=== PATIENT | male | born 1950 | race African-American/Black ===

== ENCOUNTER 2022-01-23 14:55 | Emergency (ER) | payer OTHER ==
--- NOTE | 2022-01-23 15:35 | Emergency Department Report ---
ED CPR HPI - General Stated Complaint: CARDIAC ARREST Time Seen by Provider: 01/23/22 15:30 - History of Present Illness Initial Comments: 71-year-old male brought in by EMS with CPR in progress for the last 35 minutes. EMS got a call 10 minutes before arrival to patient home for witnessed collapse. According the patient family members patient was found face down. Patient is on blood thinner Coumadin. Patient was given 3 rounds of epi with no response. Patient initially was found to be in V. tach and was cardioverted time with no response. According to EMS patient has a history of unspecified abdominal cancer and had colostomy bag. History is very limited concerning the patient is unresponsive and intubated. - Related Data Allergies Allergy/AdvReac Type Severity Reaction Status Date / Time No Known Allergies Allergy Verified 01/23/22 15:05 ED Review of Systems ROS: Stated complaint: CARDIAC ARREST Other details as noted in HPI Comment: Unobtainable due to pts medical conditions (Intubated and unresponsive with CPR in progress) ED Physical Exam - General Limitations: Other (Intubated and unresponsive with CPR in progress) - Eye Eye exam: Present: other (Pupils fully dilated and unresponsive) ED Course - Reevaluation(s) Reevaluation #1: 01/23/22 15:36 Patient received from EMS with CPR in progress for the last 35 minutes. About 45 minutes from downtime. Patient has been given 3 rounds of epi and was given 4 rounds of epi on presentation. CPR continued in the emergency room for the last 35 minutes with intermittent appreciation of spontaneous heart rate. Patient started on IV fluids. And a routine order placed including CBC, CMP, for any electrolytes or infectious process. Chest x-ray order for any cardiopulmonary findings. At 15:25 PM FAST US initiated and found patient heart to be beating even though peripheral pulse not appreciated. All resuscitation terminated and patient decleared at 15:41 PM. 01/24/22 11:51 ED Medical Decision Making - Medical Decision Making Patient received from EMS with CPR in progress for the last 35 minutes. About 45 minutes from downtime. Patient has been given 3 rounds of epi and was given 4 rounds of epi on presentation. CPR continued in the emergency room for the last 35 minutes with intermittent appreciation of spontaneous heart rate. Patient started on IV fluids. And a routine order placed including CBC, CMP, for any electrolytes or infectious process. Chest x-ray order for any cardiopulmonary findings. At 15:25 PM FAST US initiated and found patient heart to be beating even though peripheral pulse not appreciated. 01/23/22 15:39 Critical Care Time: Yes (60 minutes) Critical care time in (mins) excluding proc time.: 60 (See MDM for details) Critical care attestation.: If time is entered above; I have spent that time in minutes in the direct care of this critically ill patient, excluding procedure time. Patient received from EMS with CPR in progress for the last 35 minutes. About 45 minutes from downtime. Patient has been given 3 rounds of epi and was given 4 rounds of epi on presentation. CPR continued in the emergency room for the last 35 minutes with intermittent appreciation of spontaneous heart rate. Patient started on IV fluids. And a routine order placed including CBC, CMP, for any electrolytes or infectious process. Chest x-ray order for any cardiopulmonary findings. At 15:25 PM FAST US initiated and found patient heart to be beating even though peripheral pulse not appreciated. 01/23/22 15:39 Critical Care Time: 60 minutes ED Disposition Clinical Impression: Cardiopulmonary arrest, Cardiac arrest Disposition: 20 Is pt being admited?: No Does the pt Need Aspirin: No Condition: Stable Instructions: CPR, Adult Referrals: PRIMARY CARE, [Primary Care Provider] - 3-5 Days
== END 2022-01-23 18:10 ==
LOC: ED 14:55
DX: I46.9 Cardiac arrest, cause unspecified (principal)
CPT/HCPCS: 92950; 99291